=== PATIENT | male | born 1985 | race Caucasian/White ===

== ENCOUNTER 2020-11-03 04:21 | Emergency (ER) | payer BC ==
[2020-11-03] MEDS ORDERED: Ondansetron PF 4 MG/2 ML Vial ONE (04:54)
[2020-11-03] MEDS ORDERED: Morphine 4 MG/ML VIAL ONE ×2 (04:54→05:21)
[2020-11-03] MEDS ORDERED: Sodium Chloride 0.9% 1,000 ML ONE (04:54)
[2020-11-03 05:04] LABS: Hemoglobin 18.3 g/dL (14.0-18.0); Mean Corpuscular HGB CONC 32.8 g/dL (32.0-36.0); Mean Corpuscular Hemoglobin 29.6 pg (27.0-31.0); Mean Corpuscular Volume 90.2 fL (78.0-98.0); Platelet Count 289 thou/uL (130-400); RBC Distribution Width 11.8 % (11.5-14.5); Red Blood Cell (RBC) Count 6.18 mill/uL (4.70-6.10)
[2020-11-03 05:05] LABS: #Basophils 0.1 thou/uL (0.0-0.2); #Eosinphils 0.3 thou/uL (0.0-0.7); #Lymphocytes 3.5 thou/uL (1.20-3.40); #Neutrophils 6.2 thou/uL (1.40-6.50); %Basophils 1.3 % (0.0-1.0); %Eosinophils 2.5 % (0.0-10.0); %Lymphocytes 31.6 % (21.0-51.0); %Monocytes 8.8 % (0.0-10.0); %Neutrophils 55.9 % (42.0-75.0); Mean Platelet Volume 8.3 fL (7.4-10.4)
[2020-11-03 05:07] LABS: Bilirubin Negative (Negative); Blood, Urine Large (Negative); Clarity Clear (Clear); Glucose, Urine (Dipstick) Negative (Negative); Ketone, Urine Negative (Negative); Leukocyte Negative (Negative); Nitrite Negative (Negative); Protein, Urine (Dipstick) Trace mg/dL (Neg-Trace); Urobilinogen 0.2 mg/dL (Less than 2)
[2020-11-03 05:08] LABS: Specific Gravity, Urine 1.031 (1.002-1.036)
[2020-11-03 05:10] LABS: Bacteria/HPF None Seen HPF (None Seen); Squamous Epithelial None Seen HPF (0-3); WBC/HPF 0-3 HPF (0-3)
[2020-11-03 05:21] LABS: ALT (SGPT) 30 U/L (8-55); AST (SGOT) 17 U/L (5-34); Albumin 4.1 g/dL (3.5-5.0); Alkaline Phosphatase 76 U/L (40-110); Anion Gap 17 mmol/L (10-20); BUN (Urea Nitrogen) 19 mg/dL (8.9-20.6); Bilirubin, Total 0.7 mg/dL (0.2-1.2); Calc. Creatinine Clearance 0 mL/min (70-130); Calcium 9.5 mg/dL (7.8-10.44); Carbon Dioxide 22 mmol/L (22-29); Chloride 107 mmol/L (98-107); Globulin 3.4 g/dL (2.4-3.5); Glucose 135 mg/dL (70-105); Lipase 54 U/L (8-78); Potassium 3.8 mmol/L (3.5-5.1); Protein, Total 7.5 g/dL (6.0-8.3); Sodium 142 mmol/L (136-145)
[2020-11-03] MEDS ORDERED: Ketorolac Tromethamine 30 MG/ML VIAL ONE (05:39)
--- NOTE | 2020-11-03 08:25 | CT ---
PRELIMINARY REPORT/[facility]/EMERGENCY AFTER HOURS PROCEDURE: EXAM: CT Abdomen and Pelvis Without Intravenous Contrast CLINICAL HISTORY: RLQ PAIN TECHNIQUE: Axial computed tomography images of the abdomen and pelvis without intravenous contrast. CONTRAST: None. COMPARISON: None provided. FINDINGS: LUNG BASES: No basilar airspace consolidation or pleural effusion. LIVER: Subtle heterogeneous attenuation presumably related to some fatty infiltration.. GALLBLADDER AND BILE DUCTS: Unremarkable. No calcified stone. No ductal dilation. PANCREAS: Unremarkable. SPLEEN: Unremarkable. ADRENAL GLANDS: Unremarkable. KIDNEYS, URETERS, AND BLADDER: Mild hydronephrosis and hydroureter on the right with a 1 mm stone just above the UVJ. No intrarenal stones are seen. Left kidney and collecting system grossly normal on this noncontrast study STOMACH AND BOWEL: Evaluation of the GI tract is limited due to lack of contrast and limited distention of the GI tract. No obvious, acute GI abnormalities are identified. APPENDIX: Normal appendix. PERITONEUM: No free fluid. No free air. LYMPH NODES: No lymphadenopathy. VASCULATURE: No aortic aneurysm. ABDOMINAL WALL AND SOFT TISSUES: Unremarkable. BONES: No fracture or suspicious osseous abnormality. IMPRESSION: Small distal ureteral stone on the right with hydronephrosis. Some fatty infiltration of the liver. ELECTRONICALLY SIGNED BY: Suman Jones MD Nov 03, 2020 5:27:34 AM [employer] This report is intended for review by the ordering physician only, in accordance of law. If you recei ve this report in error, please call [facility] at [phone]. FINAL REPORT EMERGENT AFTER HOURS CT OF THE ABDOMEN AND PELVIS WITHOUT CONTRAST: FINDINGS/IMPRESSION: I agree with the findings and impression given in the preliminary report per [facility] physici an. There is a tiny right distal ureteral calcification with minimal right-sided hydronephrosis. POS: EAA
== END 2020-11-03 06:00 | disposition home or self-care (01) ==
LOC: NAV ERS 04:21
DX: N13.2 Hydronephrosis with renal and ureteral calculous obstruction (principal); F17.210 Nicotine dependence, cigarettes, uncomplicated
CPT/HCPCS: 74176; 80053; 81003; 81015; 83690; 85025; 96374; 96375; J1885; J2270; J2405; J7050

== ENCOUNTER 2020-11-07 22:52 | Emergency (ER) | payer BC ==
[2020-11-07] MEDS ORDERED: Morphine 4 MG/ML VIAL ONE (23:32)
[2020-11-07] MEDS ORDERED: Ondansetron PF 4 MG/2 ML Vial ONE (23:32)
[2020-11-07] MEDS ORDERED: Sodium Chloride 0.9% 1,000 ML ONE (23:32)
[2020-11-07] MEDS ORDERED: Ketorolac Tromethamine 30 MG/ML VIAL ONE (23:32)
--- NOTE | 2020-11-07 23:35 | RAD ---
KUB INDICATION: History of renal stones COMPARISON: CT the abdomen and pelvis without contrast dated November 03, 2020 FINDINGS: Bowel gas: Nonspecific but without overt appearance of obstruction. Lung bases: Not included in the [id number] Additional findings: The very tiny punctate calcification seen within the distal right ureter on the prior examination is not definitely confirmed on the current radiograph. Osseous structures: No acute osseous abnormality is demonstrated. IMPRESSION: 1. Tiny punctate stone within the distal right ureter on the prior CT evaluation is not definitely se en on the current KUB. No suspicious calcifications are evident. 2. Bowel gas pattern is unobstructed
[2020-11-07 23:52] LABS: Bilirubin Negative (Negative); Blood, Urine Large (Negative); Clarity Clear (Clear); Glucose, Urine (Dipstick) Negative (Negative); Ketone, Urine Negative (Negative); Leukocyte Negative (Negative); Nitrite Negative (Negative); Protein, Urine (Dipstick) 30 mg/dL (Neg-Trace); Specific Gravity, Urine 1.025 (1.005-1.030); Urobilinogen 0.2 mg/dL (Less than 2); pH, Urine 5.5 (5.0-9.0)
[2020-11-07 23:57] LABS: Bacteria/HPF None Seen HPF (None Seen); Squamous Epithelial None Seen HPF (0-3); WBC/HPF 0-3 HPF (0-3)
== END 2020-11-08 00:30 | disposition home or self-care (01) ==
LOC: NAV ERS 22:52
DX: N20.1 Calculus of ureter (principal); N23 Unspecified renal colic; F17.210 Nicotine dependence, cigarettes, uncomplicated
CPT/HCPCS: 74018; 81003; 81015; 96374; 96375; J1885; J2270; J2405; J7050